=== PATIENT | female | born 1970 | race Caucasian/White ===

== ENCOUNTER → 2016-11-11 | Outpatient (CLI) | payer MEDICARE ==
[2016-11-11 15:30] LABS: HEMOGLOBIN 12.9 gm/dl (12.3-15.3); RED BLOOD COUNT 4.39 M/UL (4.00-5.10); WHITE BLOOD COUNT 6.8 K/UL (4.5-11.0)
[2016-11-11 15:50] LABS: BUN/CREATININE RATIO 14 (0-10)
== END ==
LOC: LAB 14:51
PROVIDERS: Dermatology
DX: D64.9 Anemia, unspecified (principal); F41.1 Generalized anxiety disorder; R53.82 Chronic fatigue, unspecified; L50.9 Urticaria, unspecified; E06.9 Thyroiditis, unspecified
CPT/HCPCS: 36415; 80053; 82180; 82607; 83540; 84436; 84443; 84480; 85027

== ENCOUNTER 2021-03-03 18:40 | Emergency (ER) | payer OTHER ==
[2021-03-03] MEDS ORDERED: LODINE CAP 300300 MG PO (21:25)
[2021-03-03] MEDS ORDERED: HYDROCODON-ACE1 EAC4 PO (21:25)
== END 2021-03-03 22:26 | disposition home or self-care (01) ==
LOC: ER1 18:40
DX: S22.088A Other fracture of T11-T12 vertebra, initial encounter for closed fracture (principal); Z90.49 Acquired absence of other specified parts of digestive tract; X58.XXXA Exposure to other specified factors, initial encounter
CPT/HCPCS: 72128; 72131; 99283

== ENCOUNTER → 2021-08-17 | Outpatient (CLI) | payer OTHER ==
[~2021-08-17] MED LIST: HYDROCODON-ACE1 EAC4 PO; LODINE CAP 300300 MG PO
== END ==
LOC: KOH-I 10:08
DX: M79.671 Pain in right foot (principal); R29.890 Loss of height
CPT/HCPCS: 73630

== ENCOUNTER → 2021-09-06 | Outpatient (CLI) | payer OTHER | LOC: HEART 5 08:50 | DX: R06.00 Dyspnea, unspecified (principal) | CPT/HCPCS: 71046; 94010 ==

== ENCOUNTER → 2021-09-09 | Outpatient (CLI) | payer OTHER ==
[2021-09-09 10:30] LABS: HEMOGLOBIN 13.1 gm/dl (12.3-15.3); RED BLOOD COUNT 4.64 M/UL (4.00-5.10); WHITE BLOOD COUNT 5.3 K/UL (4.5-11.0)
[2021-09-09 11:02] LABS: BUN/CREATININE RATIO 17 (0-10)
[2021-09-10 07:12] LABS: VITAMIN D, 25-HYDROXY 31.3 ng/mL (30.0-100.0)
[2021-09-10 11:16] LABS: RHEUMATOID ARTHRITIS FACTOR <10.0 IU/mL (<14.0)
== END ==
LOC: LAB 10:10
PROVIDERS: Nurse Practitioner Family
DX: M79.643 Pain in unspecified hand (principal); E78.5 Hyperlipidemia, unspecified; I10 Essential (primary) hypertension; E55.9 Vitamin D deficiency, unspecified
CPT/HCPCS: 36415; 80053; 80061; 82607; 84439; 84443; 85025; 85652; 86038; 86140; 86431

== ENCOUNTER → 2021-09-24 | Outpatient (CLI) | payer OTHER | LOC: MAMO 10:02 | DX: Z12.31 Encounter for screening mammogram for malignant neoplasm of breast (principal) | CPT/HCPCS: 77063; 77067 ==

== ENCOUNTER → 2022-01-31 | Outpatient (CLI) | payer OTHER | LOC: EXRD 01-25 11:30 | DX: Z13.820 Encounter for screening for osteoporosis (principal) | CPT/HCPCS: 77080 ==